=== PATIENT | male | born 2000 | race Caucasian/White ===

== ENCOUNTER → 2022-09-05 14:18 | Outpatient (BNVA) | payer OTHER, SELFPAY | PROVIDERS: PCP Pediatrics; Visit Provider Physician Assistant | DX: Z13.89 Encounter for screening for other disorder (principal) ==

== ENCOUNTER → 2022-09-18 10:51 | Outpatient (BNVA) | payer MEDICAID, SELFPAY | PROVIDERS: PCP Pediatrics; Visit Provider Physician Assistant | DX: Z11.0 Encounter for screening for intestinal infectious diseases (principal); E66.01 Morbid (severe) obesity due to excess calories; F90.9 Attention-deficit hyperactivity disorder, unspecified type; F41.8 Other specified anxiety disorders; Z68.43 Body mass index [BMI] 50.0-59.9, adult | CPT/HCPCS: 99202; 99211 ==

== ENCOUNTER 2022-09-18 12:06 | Outpatient (REF) | payer MEDICAID, SELFPAY ==
[2022-09-23 13:05] LABS: H Pylori Breath Test Positive (Negative)
== END 2022-09-18 12:07 | disposition home or self-care (01) ==
LOC: HO.LNP 12:06
PROVIDERS: Visit Provider Physician Assistant
DX: Z01.818 Encounter for other preprocedural examination (principal); E66.01 Morbid (severe) obesity due to excess calories
CPT/HCPCS: 83013

== ENCOUNTER 2022-09-24 10:02 | Outpatient (REF) | payer MEDICAID, SELFPAY ==
--- NOTE | ~2022-09-24 | XR_ITS ---
EXAMINATION: XR CHEST CLINICAL INFORMATION: Preprocedural examination. COMPARISON: None available. TECHNIQUE: 2 views of the chest were obtained. FINDINGS: No significant abnormality is noted involving the heart, lungs, mediastinum, bony thorax or soft tissues. XR/XR chest 2V IMPRESSION: Unremarkable examination.
[2022-09-24 10:16] LABS: MANUAL DIFF FLAG NO
--- NOTE | 2022-09-24 10:16 | ECG_ITS ---
Test Reason : PREOP Blood Pressure : / mmHG Vent. Rate : 080 BPM Atrial Rate : 080 BPM P-R Int : 138 ms QRS Dur : 106 ms QT Int : 388 ms P-R-T Axes : 015 011 -03 degrees QTc Int : 447 ms Normal sinus rhythm Normal ECG No previous ECGs available Referred By: Nayana Bangura Electronically Signed By:PHYLLIS FIGUEROA
[2022-09-24 11:15] LABS: Basophils Percent Auto 0.4 % (0-2); Eosinophils Absolute Auto 0.1 X10*3/uL (0.0-0.4); Eosinophils Percent Auto 1.2 % (0-4); Hematocrit 40.5 % (42.0-52.0); Hemoglobin 13.9 g/dl (14.0-18.0); Imm Gran Abs Auto 0.06 X10*3/uL (0.00-0.03); Imm Gran Pct Auto 0.6 % (0.0-0.4); Lymphocytes Absolute Auto 2.1 X10*3/uL (1.2-4.9); Lymphocytes Percent Auto 19.8 % (20-40); Mean Corpuscular HGB Conc 34.3 g/dl (31.0-36.0); Mean Corpuscular Hemoglobin 28.6 pg (27.0-33.0); Mean Corpuscular Volume 83.3 fL (80.0-98.0); Mean Platelet Volume 10.5 fL (9.4-12.4); Monocytes Absolute Auto 0.7 X10*3/uL (0.1-1.2); Monocytes Percent Auto 6.1 % (2-11); Neutrophils Absolute Auto 7.7 x10*3/uL (2.0-8.3); Neutrophils Percent Auto 71.9 % (45-73); Platelet Count 382 X10*3/uL (160-400); Red Blood Count 4.86 X10*6/uL (4.60-5.80); Red Cell Distribution Width 13.2 % (11.0-16.0); White Blood Count 10.7 X10*3/uL (4.8-10.8)
[2022-09-24 12:09] LABS: Estimated Average Glucose 94 mg/dL; Hemoglobin A1c % 4.9 %
[2022-09-24 12:12] LABS: Alanine Aminotransferase 31 U/L (0-40); Albumin Level 4.7 g/dL (3.5-5.0); Alkaline Phosphatase 87 U/L (39-117); Anion Gap 17 (12-20); Aspartate Amino Transferase 23 U/L (5-37); Bilirubin Total 0.7 mg/dL (0.0-1.0); Blood Urea Nitrogen 13 mg/dL (9-16); Calcium 9.6 mg/dL (8.4-10.2); Carbon Dioxide 23 mmol/L (22-29); Chloride 105 mmol/L (96-108); Cholesterol 147 mg/dL; Estimated Glomerular Filt Rate > 60; Glucose Random 81 mg/dL (60-115); HDL Cholesterol 40 mg/dL; Iron 50 mcg/dL (45-160); LDL Cholesterol Calculated 92 mg/dl; Percent Iron Saturation 16 % (15-50); Potassium 3.6 mmol/L (3.3-5.1); Sodium 141 mmol/L (135-145); Total Iron Binding Capacity 312 mcg/dL (228-428); Total Protein 7.8 g/dL (6.5-8.0); Triglycerides 75 mg/dL; Unsaturated Iron Binding 262 ug/dL
[2022-09-24 12:21] LABS: Ferritin 129 ng/mL (20-250); Folate 9.1 ng/mL (> or = 4.0); Insulin 15 uU/mL (2-29); TSH reflex Free T4 0.36 uIU/mL (0.32-4.0); Vitamin B12 632 pg/mL (200-900); Vitamin D 25-OH Total 39.9 ng/mL (>30)
[2022-09-27 14:04] LABS: Calcium (PTHI) 9.5 mg/dL (8.6-10.3); PTHI 31 pg/mL (16-77)
[2022-09-29 16:25] LABS: Zinc 63 mcg/dL (60-130)
[2022-10-01 18:24] LABS: Vitamin A 34 mcg/dL (38-98)
[2022-10-01 23:33] LABS: Vitamin B1 8 nmol/L (8-30)
== END 2022-09-24 10:03 | disposition home or self-care (01) ==
LOC: HO.LAB 10:02
PROVIDERS: Visit Provider Physician Assistant
DX: Z01.818 Encounter for other preprocedural examination (principal); E66.01 Morbid (severe) obesity due to excess calories
CPT/HCPCS: 36415; 71046; 80053; 80061; 82306; 82607; 82728; 82746; 83036; 83525; 83540; 83970; 84425; 84443; 84590; 84630; 85025; 86140; 93005

== ENCOUNTER → 2022-10-07 08:35 | Outpatient (BNVA) | payer OTHER, SELFPAY | PROVIDERS: Visit Provider Physician Assistant | DX: Z13.89 Encounter for screening for other disorder (principal) ==

== ENCOUNTER → 2022-10-17 11:03 | Outpatient (BNVA) | payer OTHER, SELFPAY | PROVIDERS: Visit Provider Dietitian, Registered | DX: E66.01 Morbid (severe) obesity due to excess calories (principal); E11.9 Type 2 diabetes mellitus without complications; Z71.3 Dietary counseling and surveillance | CPT/HCPCS: 97802 ==

== ENCOUNTER → 2022-10-22 09:00 | Outpatient (BNVA) | payer OTHER, SELFPAY | PROVIDERS: Visit Provider Counselor Mental Health | DX: Z01.818 Encounter for other preprocedural examination (principal); E66.01 Morbid (severe) obesity due to excess calories; F41.8 Other specified anxiety disorders; F90.9 Attention-deficit hyperactivity disorder, unspecified type | CPT/HCPCS: 90791 ==

== ENCOUNTER 2022-10-28 08:49 | Outpatient (REF) | payer OTHER, SELFPAY ==
[2022-10-29 15:29] LABS: H Pylori Breath Test Negative (Negative)
== END 2022-10-28 08:50 | disposition home or self-care (01) ==
LOC: HO.LNP 08:49
PROVIDERS: Visit Provider Physician Assistant
DX: Z01.818 Encounter for other preprocedural examination (principal)
CPT/HCPCS: 83013

== ENCOUNTER → 2022-11-07 09:30 | Outpatient (BNVA) | payer OTHER, SELFPAY | PROVIDERS: PCP Internal Medicine; Visit Provider Counselor Mental Health ==

== ENCOUNTER → 2022-11-18 10:00 | Outpatient (BNVA) | payer OTHER, SELFPAY | PROVIDERS: PCP Internal Medicine; Visit Provider Physician Assistant ==

== ENCOUNTER 2022-11-20 09:24 | Outpatient (REF) | payer OTHER, SELFPAY ==
--- NOTE | ~2022-11-20 | US_ITS ---
EXAMINATION: US COMPLETE ABDOMEN WITH LIVER ELASTOGRAPHY CLINICAL INFORMATION: Preprocedural examination. COMPARISON: None available. TECHNIQUE: Real-time imaging of the abdominal viscera. Noninvasive ultrasound liver fibrosis assessment is performed using Jose ElastPQ point quantification shear wave elastography (2D-SWE) with a C5-2 MHz transducer. Multiple elastography samples are obtained. FINDINGS: PANCREAS: Normal. The visualized pancreatic head and body are normal in appearance. The remainder of the pancreas is obscured from visualization by the overlying bowel gas. ABDOMINAL AORTA: The proximal, middle, and distal aortic segments are normal in caliber. INFERIOR VENA CAVA: Visualized portions are normal. LIVER: Normal. The liver demonstrates normal size, contour and echogenicity. No focal lesion or intrahepatic biliary duct dilatation. The right lobe measures 15.7 cm in length. The left lobe measures 11.3 cm in length. Portal flow is towards the liver (hepatopetal). Shear wave liver elastography median stiffness is 1.76 m/s (reference: normal median stiffness is 1.3 m/s or less). IQR/median stiffness to assess sampling precision is 0.09 (reference: good quality data set is IQR/median stiffness of 0.15 or less). GALLBLADDER: Normal. The gallbladder is physiologically distended without evidence of stones, sludge, polyps, wall thickening or pericholecystic fluid. COMMON BILE DUCT: Normal in caliber measuring 0.6 cm in diameter. RIGHT KIDNEY: Normal. No hydronephrosis. No renal calculi or focal parenchymal lesions. The kidney measures 11.6 cm in maximum dimension. LEFT KIDNEY: Normal. No hydronephrosis. No renal calculi or focal parenchymal lesions. The kidney measures 12.4 cm in maximum dimension. SPLEEN: Normal. The spleen measures 12.2 cm in maximum dimension. FREE FLUID: None. US/US abdomen comp w elastography IMPRESSION: Liver elastography: Measurements are suggestive of compensated advanced chronic liver disease but need further test for confirmation. REFERENCE: Society of Radiologists in Ultrasound Liver Stiffness Thresholds (2020): LIVER STIFFNESS THRESHOLDS: *Liver Stiffness equal or less than 1.3 m/s: High probability of being normal. *Liver Stiffness less than 1.7 m/s: In the absence of other known clinical signs, rules out compensated advanced chronic liver disease. *Liver Stiffness 1.7-2.1 m/s: Suggestive of compensated advanced chronic liver disease but need further test for confirmation. *Liver Stiffness over 2.1 m/s: Rules in compensated advanced chronic liver disease. *Liver Stiffness over 2.4 m/s: Suggestive of clinically significant portal hypertension. QUALITY OF DATA SET: *IQR/Median value equal or less than 0.15 implies a quality data set. *IQR/Median value over 0.15 implies a poor quality data set. SIGNIFICANT CHANGE FROM PRIOR EXAM: Significant change if liver stiffness measurement is 10% or greater from prior exam. OTHER CONSIDERATIONS: The stage of liver fibrosis may be overestimated in the setting of acute hepatitis, liver inflammation, elevated liver function tests, hepatic vascular congestion, obstructive cholestasis, non-fasting state, and infiltrative diseases such as amyloidosis and lymphoma. In some patients with NAFLD, the liver stiffness thresholds for compensated advanced chronic liver disease may be lower. In causes other than viral hepatitis and NAFLD, liver stiffness thresholds are not well established.
== END 2022-11-20 09:25 | disposition home or self-care (01) ==
LOC: HO.US 09:24
PROVIDERS: PCP Internal Medicine; Visit Provider Physician Assistant
DX: Z01.818 Encounter for other preprocedural examination (principal); E66.01 Morbid (severe) obesity due to excess calories; K21.9 Gastro-esophageal reflux disease without esophagitis
CPT/HCPCS: 76705; 76981

== ENCOUNTER 2022-11-22 09:21 | Outpatient (REF) | payer OTHER, SELFPAY ==
--- NOTE | ~2022-11-22 | FL_ITS ---
EXAMINATION: XR FLUOROSCOPY UPPER GI WITH AIR CLINICAL INFORMATION: Obesity. Preoperative. COMPARISON: None available. TECHNIQUE: Routine upper GI air-contrast study was performed in upright and lying position. FINDINGS: Following oral administration of thick barium and effervescent granules there is normal propagation of bolus from the oral cavity through the pharynx, esophagus into stomach without any evidence of obstruction, narrowing or stricture. On placing patient supine and prone lying the course, caliber and peristalsis of stomach, duodenal bulb and the duodenal sweep is normal. The mucosal pattern of esophagus, stomach and duodenum is normal. There is mild gastroesophageal reflux without hiatal hernia. FLUOROSCOPY TIME: 1.1 minute DOSE AREA PRODUCT: 54.764 uGy-m2 (microgray-meter squared) FL/FL upper GI w air IMPRESSION: Mild gastroesophageal reflux without hiatal hernia.
== END 2022-11-22 09:22 | disposition home or self-care (01) ==
LOC: HO.XRAY 09:21
PROVIDERS: PCP Internal Medicine; Visit Provider Physician Assistant
DX: Z01.818 Encounter for other preprocedural examination (principal); E66.01 Morbid (severe) obesity due to excess calories
CPT/HCPCS: 74246

== ENCOUNTER → 2022-11-28 11:30 | Outpatient (BNVA) | payer OTHER, SELFPAY | PROVIDERS: PCP Internal Medicine; Visit Provider Counselor Mental Health ==

== ENCOUNTER → 2022-12-09 11:07 | Outpatient (BNVA) | payer OTHER, SELFPAY | PROVIDERS: PCP Internal Medicine; Visit Provider Dietitian, Registered | DX: E66.01 Morbid (severe) obesity due to excess calories (principal); Z71.3 Dietary counseling and surveillance | CPT/HCPCS: 97803 ==

== ENCOUNTER → 2022-12-20 08:49 | Outpatient (BNVA) | payer OTHER, SELFPAY | PROVIDERS: PCP Internal Medicine; Visit Provider Physician Assistant ==

== ENCOUNTER → 2022-12-24 12:30 | Outpatient (BNVA) | payer OTHER, SELFPAY | PROVIDERS: PCP Internal Medicine; Visit Provider Counselor Mental Health ==

== ENCOUNTER → 2022-12-27 08:52 | Outpatient (BNVA) | payer OTHER, SELFPAY | PROVIDERS: PCP Internal Medicine; Visit Provider Surgery ==

== ENCOUNTER 2023-01-14 11:30 | Outpatient (AMB) | payer OTHER, SELFPAY ==
--- NOTE | 2023-01-21 16:22 | A.OFFWM_ITS ---
Intake Intake Visit Reasons: VIDEO f/u Allergies bupropion [From WELLBUTRIN] Allergy (Unknown, Verified 12/27/22 08:57) HIVES PECANS Allergy (Mild, Uncoded 10/07/22 08:39) [facility] Surgical History History of placement of ear tubes Hx of wisdom tooth extraction Family History Mother Obesity Family history of PCOS Family history of endometriosis Kidney stones Acute Crohn's disease Diabetes Social History Alcohol intake: current Alcohol intake frequency: holidays/special occasions only Patient Tobacco Use Status: Never used Tobacco Substance Use Type: Marijuana Behavioral Health Assessment Weight Management Therapy Therapy Notes Details Pt that he continues to do well, loosing weight, hoping to get to surgery soon. He talked about his mother, her surgery for her weight loss and struggles. Also talked about his gender transition and hopes to someday have surgery. Pt reported struggling with his weight and extreme hunger since childhood, he is looking to have weight loss surgery to help improve his health and quality of life. Pt is currently not in therapy however was up until end of last year and reported being in therapy throughout his childhood, he stated that he isnt sure why, they would just bring me, maybe behavioral issues . He reported being on medication for ADHD, depression, and anxiety for most of his childhood and adolescence. Also one previous partial hospital program completion. He reported no previous inpatient psychiatric admissions however would self harm by cutting, burning, scratching etc. Presenting Concerns Referral Source provider Reason for referral weight loss surgery evaluation Precipitating Event obesity Living Situation Current Living Situation Rent At risk of losing current housing? No Satisfied with current living situation? Yes Food/Weight/Diet Expectations of change weight loss History/Relationship with food Pt reported that he has struggled his whole life with intense physical hunger. Pt reported that he would eat mostly frozen and instant foods prior to starting to the program. He would also drink clair donuts lattes (two a day), he would often go for salty foods, not very much into sweets. A lot of meat and dairy. History/Relationship with weight He was recently at his heaviest weight, History/Relationship with dieting Self diets, low calorie Binge Eating Do you frequently eat large amounts of food in short periods of time, not feeling physically hungry? No Do you feel out of control when you eat a large amount of food in a short period of time? No Do you eat large amounts of food rapidly and typically alone? Yes Night Eating Do you wake up at least once during the night to eat? No If you wake up in the night, do you find that it is necessary to eat something in order to fall back asleep? No Do you have little or no appetite in the morning and feel very hungry in the evening, often overeating between dinner and when you go to bed? No Social History Family history and relationship Pt was raised by his mother and father and then his mother remarried his step father. He reported that he is the only child and has Parental/Familial frozen yogurt maker obligations none Developmental history and status behavioral issues in school Social support he denied any Legal Involvement and History Current or historical involvement with the legal system? none Education Highest grade completed 9th grade. Preferred learning style Auditory, Verbal, Written, Learn by doing and Visual Currently enrolled in educational program? No Interested in further educational program? 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 Employment Employment Status Other Wants help to find employment? No Meaningful activities painting, video games Financial Situation Describe current financial situation Occasional struggle Financial assistance? SSDI Service Service? No Mental Health and Addiction Treatment Current/Past substance abuse? No Current/Past addictive behavior concerns? No Medical and Physical Health Summary Physical exam in the last year? No Pain Screening Current pain? No Pain in the last few months? No Medications Is the patient compliant with medications? Yes Does the patient have Urrutia Guardian in place? Not applicable Does the patient use complimentary health approaches? No Trauma/Abuse History History of trauma? Yes Assessment & Plan Assessment & Plan (1) Depression with anxiety: Code(s): F41.8 - Other specified anxiety disorders (2) ADHD: Code(s): F90.9 - Attention-deficit hyperactivity disorder, unspecified type Plan Patient is doing well, did indicate that his mother is somewhat supportive who lives across the street. Patient will continue to be seen and is cleared for surgery. Telehealth Telehealth Location of provider rendering services: other Location of patient: address on file Patient Identification confirmed using: Name, : Yes Telehealth method: video Patient verbally consented to treatment: Yes Patient verbally consented to billing insurance company: Yes Patient informed of any privacy concerns related to visit: Yes Minutes spent on Phone/Video with Pt.: 35 Coding Level of Care Code Tele Psytx 30 mins (66244) Diagnoses Depression with anxiety F41.8 ADHD F90.9 Time Spent (min) 35
== END 2023-01-21 16:21 | disposition home or self-care (01) ==
LOC: HO.HBST 12:17
PROVIDERS: PCP Internal Medicine; Visit Provider Counselor Mental Health
DX: F41.8 Other specified anxiety disorders (principal); F90.9 Attention-deficit hyperactivity disorder, unspecified type
CPT/HCPCS: 90832

== ENCOUNTER → 2023-01-14 11:30 | Outpatient (BNVA) | payer OTHER, SELFPAY | PROVIDERS: PCP Internal Medicine; Visit Provider Counselor Mental Health ==

== ENCOUNTER 2023-01-28 13:44 | Outpatient (AMB) | payer OTHER, SELFPAY ==
--- NOTE | 2023-01-28 14:07 | MHC.WMTHER ---
Intake Intake Visit Reasons: VIDEO f/u Allergies bupropion [From WELLBUTRIN] Allergy (Unknown, Verified 12/27/22 08:57) HIVES PECANS Allergy (Mild, Uncoded 10/07/22 08:39) [facility] History History of placement of ear tubes Hx of wisdom tooth extraction Family History Mother Obesity Family history of PCOS Family history of endometriosis Kidney stones Acute Crohn's disease Diabetes Social History Alcohol intake: current Alcohol intake frequency: holidays/special occasions only Patient Tobacco Use Status: Never used Tobacco Substance Use Type: Marijuana Behavioral Health Assessment Weight Management Therapy Therapy Notes Details Pt that he hopes to continue doing well, not completely happy that he has to have surgery and feels like he should have never reached this point to begin with. Pt reported struggling with his weight and extreme hunger since childhood, he is looking to have weight loss surgery to help improve his health and quality of life. Pt is currently not in therapy however was up until end of last year and reported being in therapy throughout his childhood, he stated that he isnt sure why, they would just bring me, maybe behavioral issues . He reported being on medication for ADHD, depression, and anxiety for most of his childhood and adolescence. Also one previous partial hospital program completion. He reported no previous inpatient psychiatric admissions however would self harm by cutting, burning, scratching etc. Presenting Concerns Referral Source provider Reason for referral weight loss surgery evaluation Precipitating Event obesity Living Situation Current Living Situation Rent At risk of losing current housing? No Satisfied with current living situation? Yes Food/Weight/Diet Expectations of change weight loss History/Relationship with food Pt reported that he has struggled his whole life with intense physical hunger. Pt reported that he would eat mostly frozen and instant foods prior to starting to the program. He would also drink clair donuts lattes (two a day), he would often go for salty foods, not very much into sweets. A lot of meat and dairy. History/Relationship with weight He was recently at his heaviest weight, History/Relationship with dieting Self diets, low calorie Binge Eating Do you frequently eat large amounts of food in short periods of time, not feeling physically hungry? No Do you feel out of control when you eat a large amount of food in a short period of time? No Do you eat large amounts of food rapidly and typically alone? Yes Night Eating Do you wake up at least once during the night to eat? No If you wake up in the night, do you find that it is necessary to eat something in order to fall back asleep? No Do you have little or no appetite in the morning and feel very hungry in the evening, often overeating between dinner and when you go to bed? No Social History Family history and relationship Pt was raised by his mother and father and then his mother remarried his step father. He reported that he is the only child and has Parental/Familial farm or ranch animal caretaker obligations none Developmental history and status behavioral issues in school Social support he denied any Legal Involvement and History Current or historical involvement with the legal system? none Education Highest grade completed 9th grade. Preferred learning style Auditory, Verbal, Written, Learn by doing and Visual Currently enrolled in educational program? No Interested in further educational program? 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 Employment Employment Status Other Wants help to find employment? No Meaningful activities painting, video games Financial Situation Describe current financial situation Occasional struggle Financial assistance? SSDI Service Service? No Mental Health and Addiction Treatment Current/Past substance abuse? No Current/Past addictive behavior concerns? No Medical and Physical Health Summary Physical exam in the last year? No Pain Screening Current pain? No Pain in the last few months? No Medications Is the patient compliant with medications? Yes Does the patient have Urrutia Guardian in place? Not applicable Does the patient use complimentary health approaches? No Trauma/Abuse History History of trauma? Yes Assessment & Plan Assessment & Plan (1) Depression with anxiety: Code(s): F41.8 - Other specified anxiety disorders (2) ADHD: Code(s): F90.9 - Attention-deficit hyperactivity disorder, unspecified type Plan Patient is doing well, did indicate that his mother is somewhat supportive who lives across the street. Patient will continue to be seen and is cleared for surgery. Telehealth Telehealth Location of provider rendering services: other Location of patient: address on file Patient Identification confirmed using: Name, : Yes Telehealth method: video Patient verbally consented to treatment: Yes Patient verbally consented to billing insurance company: Yes Patient informed of any privacy concerns related to visit: Yes Minutes spent on Phone/Video with Pt.: 35 Coding Level of Care Code Tele Psytx 30 mins (57580) Diagnoses Depression with anxiety F41.8 ADHD F90.9 Time Spent (min) 25
== END 2023-01-28 14:06 | disposition home or self-care (01) ==
LOC: HO.HBST 13:44
PROVIDERS: PCP Internal Medicine; Visit Provider Counselor Mental Health
DX: F41.8 Other specified anxiety disorders (principal); F90.9 Attention-deficit hyperactivity disorder, unspecified type
CPT/HCPCS: 90832

== ENCOUNTER → 2023-01-28 13:44 | Outpatient (BNVA) | payer OTHER, SELFPAY | PROVIDERS: PCP Internal Medicine; Visit Provider Counselor Mental Health ==

== ENCOUNTER → 2023-01-31 13:27 | Outpatient (BNVA) | payer OTHER, SELFPAY | PROVIDERS: PCP Internal Medicine; Visit Provider Surgery ==

== ENCOUNTER 2023-02-24 10:30 | Outpatient (AMB) | payer OTHER, SELFPAY ==
--- NOTE | 2023-02-24 10:32 | MHC.OFFVISWM ---
Intake VS Expanded 02/24/23 10:36 Height 5 ft 8.5 in Weight 345 lb BMI 51.7 Intake Visit Reasons: VIDEO Pre Op LSG 03/12/23 Allergies bupropion [From WELLBUTRIN] Allergy (Unknown, Verified 12/27/22 08:57) HIVES PECANS Allergy (Mild, Uncoded 10/07/22 08:39) VOMITING HPI HPI Comments History of Present Illness Details Pt is scheduled for LSG with Dr Warren on 03/12/23. He is conerned about using his EBT for protein shakes post op. I assured him that he can continue using the same shakes he uses now and we will order MVI supplements for him so he won't have any extra costs. Caffeine - coffee 2 cups in am and 2 more cup sipping through out the day. Normally uses half and half. Meal plan now- shakes at 7pm and 10 pm, 1 am cottage cheese and 4-5 am - meal. sleeps from 7am - 2-3 pm. [facility] Surgical History History of placement of ear tubes Hx of wisdom tooth extraction Family History Mother Obesity Family history of PCOS Family history of endometriosis Kidney stones Acute Crohn's disease Diabetes Social History Alcohol intake: current Alcohol intake frequency: holidays/special occasions only Patient Tobacco Use Status: Never used Tobacco Substance Use Type: Marijuana Assessment & Plan Assessment & Plan (1) Morbid exogenous obesity: Code(s): E66.01 - Morbid (severe) obesity due to excess calories Plan: Pt will start liquid meal plan on 02/26/23. 4 shakes per day at 7pm, 10pm, 1 am, 4 am and may have a 5th as needed at 6am. This is being emailed to him also. Continue exercise routine. Wean off caffeine ----Starting today - have 2 cups in am, no half and half - use 1% Milk. stop other 2 cups now 3 days from now - 1 cup of coffee in am. 3 days later half caffeine and half decaf until surgery Patient is requesting an anti anxiety med to use the night before surgery, he plans to ask Dr Warren for his. I recommended he check with his PCP about this this week. He is changing his pre op appt date today. Patient is still morbidly obese and is not considered stable at this time. I spent 28 minutes in total speaking with the patient via video conference counseling , reviewing records and charting in patients chart. . (2) Depression with anxiety: Code(s): F41.8 - Other specified anxiety disorders Telehealth Telehealth Location of provider rendering services: practice address Location of patient: address on file Patient Identification confirmed using: Name, : Yes Telehealth method: video Patient verbally consented to treatment: Yes Patient verbally consented to billing insurance company: Yes Patient informed of any privacy concerns related to visit: Yes Coding Level of Care Code Tele Est Pt Level 4 (19454) Diagnoses Morbid exogenous obesity E66.01 Depression with anxiety F41.8
[2023-02-24 10:36] VITALS: BMI 51.7
== END 2023-02-24 11:02 | disposition home or self-care (01) ==
LOC: HO.HBS 10:44
PROVIDERS: PCP Internal Medicine; Visit Provider Physician Assistant
DX: E66.01 Morbid (severe) obesity due to excess calories (principal); F41.8 Other specified anxiety disorders
CPT/HCPCS: 99214

== ENCOUNTER → 2023-02-24 10:30 | Outpatient (BNVA) | payer OTHER, SELFPAY | PROVIDERS: PCP Internal Medicine; Visit Provider Physician Assistant ==

== ENCOUNTER 2024-02-10 00:38 | Emergency (ER) | payer OTHER, SELFPAY ==
[2024-02-10 00:55] VITALS: BP 136/52; PULSE 120; RESP 20; TEMP 36.8; O2SAT 98; BMI 48.2
[2024-02-10 01:16] LABS: MANUAL DIFF FLAG NO
[2024-02-10 01:17] LABS: Basophils Percent Auto 0.3 % (0-2); Eosinophils Absolute Auto 0.1 X10*3/uL (0.0-0.4); Eosinophils Percent Auto 0.6 % (0-4); Hematocrit 42.2 % (42.0-52.0); Hemoglobin 15.3 g/dl (14.0-18.0); Imm Gran Abs Auto 0.02 X10*3/uL (0.00-0.03); Imm Gran Pct Auto 0.2 % (0.0-0.4); Lymphocytes Absolute Auto 1.9 X10*3/uL (1.2-4.9); Lymphocytes Percent Auto 21.9 % (20-40); Mean Corpuscular HGB Conc 36.3 g/dl (31.0-36.0); Mean Corpuscular Hemoglobin 30.1 pg (27.0-33.0); Mean Corpuscular Volume 82.9 fL (80.0-98.0); Mean Platelet Volume 9.6 fL (9.4-12.4); Monocytes Absolute Auto 0.8 X10*3/uL (0.1-1.2); Monocytes Percent Auto 8.5 % (2-11); Neutrophils Absolute Auto 6.1 x10*3/uL (2.0-8.3); Neutrophils Percent Auto 68.5 % (45-73); Platelet Count 336 X10*3/uL (160-400); Red Blood Count 5.09 X10*6/uL (4.60-5.80); Red Cell Distribution Width 12.7 % (11.0-16.0); White Blood Count 8.9 X10*3/uL (4.8-10.8)
[2024-02-10 01:35] LABS: Alanine Aminotransferase 27 U/L (0-40); Albumin Level 4.5 g/dL (3.5-5.0); Alkaline Phosphatase 72 U/L (39-117); Anion Gap 20 (12-20); Aspartate Amino Transferase 21 U/L (5-37); Bilirubin Total 1.2 mg/dL (0.0-1.0); Blood Urea Nitrogen 12 mg/dL (9-16); Calcium 9.6 mg/dL (8.4-10.2); Carbon Dioxide 16 mmol/L (22-29); Chloride 106 mmol/L (96-108); Creatinine Clr Calc Pharmacy 143.1; Estimated Glomerular Filt Rate > 60; Glucose Random 114 mg/dL (60-115); Lipase 28 U/L (8-78); Sodium 139 mmol/L (135-145); Total Protein 7.8 g/dL (6.5-8.0)
[2024-02-10 02:32] VITALS: BP 120/70; PULSE 65; RESP 12; TEMP 36.7; O2SAT 97
--- NOTE | 2024-02-10 02:32 | PC.NURSE ---
pt changed into hospital attire, labs collected and sent. pt awaiting to be seen.
[2024-02-10] MEDS: 0.9 % Sodium Chloride 1,000 ML 999 ML IV (02:40)
--- NOTE | 2024-02-10 02:43 | PC.NURSE ---
Medicated per mar, pt had not had any episodes of n/v at this time. pt resting in bed at this time no sign of distress.
[2024-02-10 03:48] VITALS: BP 119/64; PULSE 72; RESP 16; TEMP 36.9; O2SAT 99
[2024-02-10 03:57] LABS: Appearance Urine Clear; Color Urine Dark Yellow; Glucose Urine UA Negative (Negative); Leukocyte Esterase Urine Trace (Negative); Nitrite Urine Negative (Negative); PH 5.5 (5.0-9.0); Specific Gravity - Urine >= 1.030 (1.005-1.025); UMIC TRIGGER UACC YES; Urine Blood Negative (Negative); Urine Ketones >=160 mg/dL (Negative); Urine Protein 30 (1+) mg/dL (Neg-Trace)
[2024-02-10 04:02] LABS: Bacteria Urine None Seen (None Seen); Hyaline Casts Urine 0-2 /LPF (0-2); RBC Urine 0-2 /HPF (0-2); Squamous Epithelial Cell Urine 0-2 /HPF (0-2); WBC Urine 0-5 /HPF (0-5)
--- NOTE | 2024-02-10 05:00 | PC.NURSE ---
offered Tyneol for pain management. Pt refused, notified Provider Hay.
[2024-02-10] MEDS: Ketorolac Tromethamine 15 MG/ML VIAL IVPUSH (05:09)
[2024-02-10 05:26] LABS: Bilirubin Direct 0.4 mg/dL (0.0-0.5); C Reactive Protein 0.76 mg/dL (< or = 0.50)
[2024-02-10] MEDS: droPERidol 5 MG/2 ML VIAL 1.25 MG IVPUSH (05:29)
--- NOTE | 2024-02-10 05:36 | PC.NURSE ---
Medicated for Nausea per Aug.
[2024-02-10 05:55] VITALS: BP 123/61; PULSE 63; RESP 16; TEMP 36.4; O2SAT 95
--- NOTE | 2024-02-10 06:04 | PC.NURSE ---
po challenge, tolerating well.
--- NOTE | 2024-02-10 06:13 | ED_ITS ---
HPI - General Adult General Chief complaint: Abdominal Pain Stated complaint: abd pain Time Seen by Provider: 02/10/24 06:12 History of Present Illness ED Provider: Leia [facility] narrative: The patient is a 23-year-old male who presents complaining of abdominal pain, nausea, and vomiting that has been bothering him for about 4 or 5 days. He was seen at [facility] yesterday and had a workup that included a negative CT scan of the abdomen and pelvis with IV contrast. He was discharged with a prescription for ondansetron. He had a recurrence of symptoms and came to the emergency room here tonight. He had a long wait to be seen by a provider. He has been given IV ketorolac and IV droperidol. His symptoms improved and he requested discharge. At that point I went to see him. No definite fever, sweats, chills. Related Data Home Medications ?Medication ?Instructions ?Recorded ?Confirmed MELATONIN PO PRN 09/18/22 12/27/22 VITAMIN D PO 09/18/22 12/27/22 testosterone cypionate 200 mg/mL 60 mg subcut QWEEK 09/18/22 12/27/22 intramuscular oil Previous Rx's ?Medication ?Instructions ?Recorded omeprazole 40 mg capsule,delayed 40 mg PO DAILY #30 caps 02/10/24 release sucralfate 1 gram tablet 1 g PO TID PRN abdominal pain #60 02/10/24 tabs Allergies Allergy/AdvReac Type Severity Reaction Status Date / Time bupropion [From WELLBUTRIN] Allergy Intermediate HIVES Verified 02/10/24 00:58 pecan nut Allergy Mild Vomiting Verified 02/10/24 00:58 Review of Systems 2 Review of Systems: Yes all other systems are reviewed and are negative [facility] Past Medical History Medical History (Updated 02/10/24 @ 06:13 by Sachin Dupree MD) Anemia Depression with anxiety ADHD Liver fibrosis GERD (gastroesophageal reflux disease) Surgical History History of placement of ear tubes Hx of wisdom tooth extraction Family History Family History Mother Obesity Family history of PCOS Family history of endometriosis Kidney stones Acute Crohn's disease Diabetes Social History Social History Alcohol intake: current Alcohol intake frequency: holidays/special occasions only Patient Tobacco Use Status: Never used Tobacco Smoked in Last 30 Days: No Use of substances other than those prescribed or required for medical reasons: Yes Substance Use Type: Marijuana Advance Directives: No Advance Directives Information Provided: Yes Do you have a plan to hurt others: No Plan Physical Exam ED Vital Signs: Vital Signs - 24 hr 02/10/24 00:55 02/10/24 02:32 02/10/24 03:48 Temperature 98.3 F 98.1 F 98.4 F Pulse Rate 120 H 65 72 Respiratory Rate 20 12 16 Blood Pressure 136/52 L 120/70 119/64 Pulse Oximetry 98 97 99 Oxygen Delivery Method Room Air Room Air Room Air 02/10/24 05:55 02/10/24 06:29 Temperature 97.5 F 98.6 F Pulse Rate 63 65 Respiratory Rate 16 16 Blood Pressure 123/61 123/63 Pulse Oximetry 95 98 Oxygen Delivery Method Room Air Room Air BMI result Body Mass Index 48.2 Const Other: At the time that I saw the patient he was feeling better after having received a dose of ketorolac and a dose of droperidol. He was awake and alert and did not appear in obvious distress. HENMT Other: Face is symmetrical. Mucous membranes moist. Eyes Other: Pupils were round equal, conjunctivae clear, extraocular movements intact. Neck Other: Moving his neck easily Resp Effort & Inspection: normal respiratory effort Auscultation: clear to auscultation bilaterally GI Other: Either with soft and not focally tender Skin Other: Skin was pale and dry Neuro Other: The patient was awake and alert with a normal mental status. He moves all extremities symmetrically. Extrem Other: No calf asymmetry or tenderness. Medications Administered Discontinued Medications Generic Name Dose Route Start Last Admin Trade Name Freq PRN Reason Stop Dose Admin Droperidol 1.25 mg 02/10/24 05:25 02/10/24 05:29 Droperidol 5 Mg/2 Ml Vial IVPUSH 02/10/24 05:26 1.25 mg ONCE ONE Administration Sodium Chloride 1,000 mls @ 999 mls/hr 02/10/24 02:45 02/10/24 04:52 Ns IV 02/10/24 03:45 Infused .Q1H1M AMIRAH Infusion Ketorolac Tromethamine 15 mg 02/10/24 05:03 02/10/24 05:09 Ketorolac Tromethamine 15 Mg/Ml Vial IVPUSH 02/10/24 05:04 15 mg ONCE ONE Administration Medical Decision Making Medical Decision Making [facility] Narrative: The patient is a 23-year-old male who presents for evaluation of abdominal pain that has been bothering him for about 4 or 5 days. He was seen yesterday at [facility] and had a negative workup including a CT scan of the abdomen and pelvis with IV contrast. He comes to this emergency room with recurrence of symptoms since leaving [facility]. He received 15 mg of IV ketorolac and 1.25 mg of IV droperidol and a L of crystalloid and felt considerably better. His workup with labs was unremarkable. CBC showed a white count of 8.9 with a normal differential. Lipase was normal. LFTs not markedly abnormal. CRP 0.76. However urinalysis showed significant ketones and a high specific gravity. The patient will be discharged with a prescription for omeprazole 40 mg daily and also prescription for sucralfate as needed. He should follow up with his PCP and consider a referral to Gastroenterology. Lab Data 02/10/24 01:12 02/10/24 01:12 Labs: Lab Results 02/10/24 02/10/24 Range/Units 01:12 03:52 WBC 8.9 (4.8-10.8) X10*3/uL RBC 5.09 (4.60-5.80) X10*6/uL Hgb 15.3 (14.0-18.0) g/dl Hct 42.2 (42.0-52.0) % MCV 82.9 (80.0-98.0) fL MCH 30.1 (27.0-33.0) pg MCHC 36.3 H (31.0-36.0) g/dl RDW 12.7 (11.0-16.0) % Plt Count 336 (160-400) X10*3/uL MPV 9.6 (9.4-12.4) fL Immature Gran % (Auto) 0.2 (0.0-0.4) % Neut % (Auto) 68.5 (45-73) % Lymph % (Auto) 21.9 (20-40) % [place] % (Auto) 8.5 (2-11) % Eos % (Auto) 0.6 (0-4) % Baso % (Auto) 0.3 (0-2) % Lymph # (Auto) 1.9 (1.2-4.9) X10*3/uL [place] # (Auto) 0.8 (0.1-1.2) X10*3/uL Eos # (Auto) 0.1 (0.0-0.4) X10*3/uL Baso # (Auto) 0.0 (0.0-0.2) X10*3/uL Abs Immat Gran (auto) 0.02 (0.00-0.03) X10*3/uL Absolute Neuts (auto) 6.1 (2.0-8.3) x10*3/uL Absolute Nucleated RBC 0.000 (0.0-0.012) X10*3/uL Nucleated RBC % (auto) 0.0 (0.0-0.2) /100WBC Sodium 139 (135-145) mmol/L Potassium 3.0 L (3.3-5.1) mmol/L Chloride 106 (96-108) mmol/L Carbon Dioxide 16 L (22-29) mmol/L Anion Gap 20 (12-20) BUN 12 (9-16) mg/dL Creatinine 1.10 (0.5-1.4) mg/dL Estim Creat Clear Calc 143.1 Estimated GFR > 60 Random Glucose 114 (60-115) mg/dL Calcium 9.6 (8.4-10.2) mg/dL Total Bilirubin 1.2 H (0.0-1.0) mg/dL Direct Bilirubin 0.4 (0.0-0.5) mg/dL AST 21 (5-37) U/L ALT 27 (0-40) U/L Alkaline Phosphatase 72 (39-117) U/L C-Reactive Protein 0.76 H (< or = 0.50) mg/dL Total Protein 7.8 (6.5-8.0) g/dL Albumin 4.5 (3.5-5.0) g/dL Lipase 28 (8-78) U/L Urine Color Dark Yellow Urine Appearance Clear Urine pH 5.5 (5.0-9.0) Ur Specific [place] >= 1.030 H (1.005-1.025) Urine Protein 30 (1+) H (Neg-Trace) mg/dL Urine Glucose (UA) Negative (Negative) mg/dL Urine Ketones >=160 (Negative) mg/dL Urine Blood Negative (Negative) Urine Nitrite Negative (Negative) Ur Leukocyte Esterase Trace H (Negative) Urine RBC 0-2 (0-2) /HPF Urine WBC 0-5 (0-5) /HPF Ur Squamous Epith Cells 0-2 (0-2) /HPF Urine Bacteria None Seen (None Seen) Hyaline Casts 0-2 (0-2) /LPF Discharge Plan Discharge Clinical Impression: Abdominal pain Patient Disposition: Home, Self-Care Additional Instructions: Please take the omeprazole daily. This is an acid reducing medication that can help with gastritis. Sucralfate is a medication you may use as well but use this medication on an as- needed basis. You may take this up to 3 times a day as needed. Use the Zofran you have been previously prescribed as needed for nausea. 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 Return to the emergency room if significantly worse. Prescriptions: New omeprazole 40 mg capsule,delayed release(DR/EC) 40 mg PO DAILY Qty: 30 0RF sucralfate 1 gram tablet 1 g PO TID PRN (Reason: abdominal pain) Qty: 60 0RF No Action VITAMIN D PO MELATONIN PO PRN testosterone cypionate 200 mg/mL oil 60 mg subcut QWEEK Referrals: Jaskaran Padilla MD [Primary Care Provider] - (Abdominal pain) Interventions: ED Discharge Assessment Last Done: 02/10/24 06:29 Discharge Date/Time: 02/10/24 06:30 Print Language: [place]i
--- NOTE | 2024-02-10 06:28 | PC.NURSE ---
IV removed, reviewed discharge instruction with pt. pt verbalized understanding
[2024-02-10 06:29] VITALS: BP 123/63; PULSE 65; RESP 16; TEMP 37; O2SAT 98
== END 2024-02-10 06:30 | disposition home or self-care (01) ==
PROVIDERS: Emergency Provider Emergency Medicine; PCP Internal Medicine
DX: R10.9 Unspecified abdominal pain (principal)
CPT/HCPCS: 36415; 80053; 81001; 82248; 83690; 85025; 86140; 96361; 96374; 96375; 99284; 99285; J1790; J1885